=== PATIENT | female | born 1935 | race Caucasian/White ===

== ENCOUNTER 2019-06-07 10:21 | Emergency (ER) | payer MEDICARE ==
[2019-06-07] MEDS ORDERED: SODIUM CHLORIDE 0.9% 500ML 500 ML IV ONE (10:52)
[2019-06-07 11:17] LABS: BASOPHILS % (AUTO) 0.4 % (0.0-5.0); EOSINOPHILS % (AUTO) 1.3 % (0.0-8.0); HEMATOCRIT 41.4 % (36-48); LYMPHOCYTES % (AUTO) 14.7 % (21.0-51.0); MEAN CORPUSCULAR HEMOGLOBIN 31.6 pg (27.0-33.0); MEAN CORPUSCULAR HGB CONC 34.2 g/dL (32.0-36.0); MEAN CORPUSCULAR VOLUME 92.2 fL (79-99); MONOCYTES % (AUTO) 9.4 % (3.0-13.0); NEUTROPHILS % (AUTO) 74.2 % (40.0-77.0); PLATELET COUNT (AUTO) 229 K/uL (130-400); RED BLOOD CELL COUNT(AUTO) 4.49 MIL/uL (4.00-5.50); RED CELL DISTRIBUTION WIDTH 14.6 % (11.0-15.5); WHITE BLOOD COUNT (AUTO) 14.9 K/uL (4.8-10.8)
[2019-06-07 11:39] LABS: CREATININE 0.9 mg/dL (0.5-1.5); POTASSIUM 3.5 mmol/L (3.5-5.1)
[2019-06-07 11:43] LABS: ALBUMIN 3.2 g/dL (3.5-5.0); BILIRUBIN,TOTAL 0.8 mg/dL (0.2-1.0); TOTAL PROTEIN, SERUM 7.3 g/dL (6.0-8.3)
[2019-06-07 11:44] LABS: APPEARANCE,URINE Cloudy (CLEAR); BILIRUBIN,URINE Negative (NEGATIVE); COLOR,URINE Dark Yellow (YELLOW); GLUCOSE, URINE (UA) Negative (NEGATIVE); KETONES,URINE Trace mg/dL (NEGATIVE); LEUKOCYTE ESTERASE ,URINE Negative (NEGATIVE); NITRATE,URINE Negative (NEGATIVE); OCCULT BLOOD,URINE Negative (NEGATIVE); PROTEIN,URINE Negative (NEGATIVE)
[2019-06-07 11:54] LABS: B-TYPE NATRIURETIC PEPTIDE 119 pg/mL (0-100)
[2019-06-07 12:04] LABS: BACTERIA,URINE Rare /HPF (None Seen); MUCUS,URINE Many LPF (None Seen); RBC,URINE 0-1 /HPF (0-1); SQUAMOUS EPITHELIAL CELL,UR Moderate /HPF (0-2); WBC,URINE 0-1 /HPF (0-1)
[2019-06-07 12:07] LABS: PARTIAL THROMBOPLASTIN TIME 26.4 SEC (26.3-35.5); PROTHROMBIN TIME 10.5 SEC (9.6-11.6)
[2019-06-07] MEDS ORDERED: IOHEXOL 350 MG/ML 100ML INFUS..BTL IV ONE (13:57)
[2019-06-07 15:52] LABS: ABG BASE EXCESS 0.7 mmol/L (-2.0-3.0); ABG HCO3 24.4 mmol/L (21.0-28.0); ABG OXYGEN SATURATION 95.5 % (95.0-99.0); ABG PCO2 36 mmHg (32-45)
[2019-06-07] MEDS ORDERED: IPRATROPIUM/ALBUTEROL SULFATE 3 ML SOLUTION IH ONE (16:50)
== END 2019-06-07 17:16 | disposition home or self-care (01) ==
LOC: EDH 10:21
DX: I10 Essential (primary) hypertension (principal); F41.9 Anxiety disorder, unspecified; J32.9 Chronic sinusitis, unspecified; R06.02 Shortness of breath; E78.00 Pure hypercholesterolemia, unspecified; Z95.1 Presence of aortocoronary bypass graft; Z87.891 Personal history of nicotine dependence; Z88.8 Allergy status to other drugs, medicaments and biological substances
CPT/HCPCS: 36415; 36600; 71045; 71275; 80053; 81001; 82550; 82803; 83880; 84484; 85025; 85610; 85730; 87804 ×2; 93005; 94640; 99285; J7040; Q9967

== ENCOUNTER 2019-08-08 22:42 | Emergency (ER) | payer MEDICARE | END 2019-08-09 00:53 | disposition home or self-care (01) | LOC: EDH 22:42 | DX: K59.00 Constipation, unspecified (principal); E78.00 Pure hypercholesterolemia, unspecified; Z98.890 Other specified postprocedural states; Z88.8 Allergy status to other drugs, medicaments and biological substances ==

== ENCOUNTER 2019-09-20 18:00 | Emergency (ER) | payer MEDICARE | END 2019-09-20 21:26 | disposition home or self-care (01) | LOC: EDH 18:00 | DX: R07.89 Other chest pain (principal); K56.609 Unspecified intestinal obstruction, unspecified as to partial versus complete obstruction; E78.00 Pure hypercholesterolemia, unspecified; Z88.8 Allergy status to other drugs, medicaments and biological substances; V00.831A Fall from motorized mobility scooter, initial encounter; Y93.89 Activity, other specified; Y92.89 Other specified places as the place of occurrence of the external cause; Y99.8 Other external cause status | CPT/HCPCS: 71046; 82948 ==

== ENCOUNTER 2020-10-06 15:55 | Inpatient (IN) | payer MEDICARE ==
[~2020-10-06] VITALS: Ht 157.5 cm; Wt 63.5 kg
[2020-10-06 16:23] LABS: BASOPHILS % (AUTO) 0.3 % (0.0-5.0); EOSINOPHILS % (AUTO) 2.2 % (0.0-8.0); HEMATOCRIT 41.6 % (36-48); LYMPHOCYTES % (AUTO) 11.6 % (21.0-51.0); MEAN CORPUSCULAR HEMOGLOBIN 30.7 pg (27.0-33.0); MEAN CORPUSCULAR HGB CONC 33.2 g/dL (32.0-36.0); MEAN CORPUSCULAR VOLUME 92.4 fL (79-99); MONOCYTES % (AUTO) 8.2 % (3.0-13.0); NEUTROPHILS % (AUTO) 77.4 % (40.0-77.0); PLATELET COUNT (AUTO) 240 K/uL (130-400); WHITE BLOOD COUNT (AUTO) 8.7 K/uL (4.8-10.8)
[2020-10-06 16:34] LABS: CREATININE 0.9 mg/dL (0.5-1.5)
[2020-10-06 16:36] LABS: INR 1.05 (0.85-1.15); PROTHROMBIN TIME 11.4 SEC (9.6-11.6)
[2020-10-06 16:37] LABS: PARTIAL THROMBOPLASTIN TIME 25.8 SEC (26.3-35.5)
[2020-10-06 16:38] LABS: ALBUMIN 3.5 g/dL (3.5-5.0); BILIRUBIN,TOTAL 0.4 mg/dL (0.2-1.0); TOTAL PROTEIN, SERUM 7.2 g/dL (6.0-8.3)
[2020-10-06 17:06] LABS: CRP QUANTITATIVE 13.7 mg/L (0.00-9.0)
[2020-10-06 17:24] LABS: APPEARANCE,URINE Clear (CLEAR); BILIRUBIN,URINE Negative (NEGATIVE); COLOR,URINE Yellow (YELLOW); GLUCOSE, URINE (UA) Negative (NEGATIVE); KETONES,URINE Trace mg/dL (NEGATIVE); LEUKOCYTE ESTERASE ,URINE Trace (NEGATIVE); NITRATE,URINE Negative (NEGATIVE); OCCULT BLOOD,URINE Negative (NEGATIVE); PH,URINE 7.5 (5.0-8.0); PROTEIN,URINE Negative (NEGATIVE)
[2020-10-06 17:43] LABS: BACTERIA,URINE Rare /HPF (None Seen); RBC,URINE 0-1 /HPF (0-1); SQUAMOUS EPITHELIAL CELL,UR Few /HPF (0-2); WBC,URINE 0-1 /HPF (0-1)
[2020-10-06] MEDS ORDERED: MORPHINE 2 MG SYG IV PRN (20:15)
[2020-10-06] MEDS ORDERED: MAG/ALUM/SIMETH 30 ML UDCUP PO PRN (20:15)
[2020-10-06] MEDS: IBUPROFEN 800 MG TAB PO SCH (20:15)
[2020-10-06] MEDS ORDERED: ACETAMINOPHEN 325 MG TAB PO PRN ×2 (20:15)
[2020-10-06] MEDS ORDERED: DIPHENHYDRAMINE HCL 25 MG CAPSULE PO PRN (20:15)
[2020-10-06] MEDS ORDERED: NITROGLYCERIN 0.4 MG SL TAB SL PRN (20:15)
[2020-10-06] MEDS ORDERED: HYDROMORPHONE 1 MG INJ IV PRN (20:15)
[2020-10-06] MEDS ORDERED: ONDANSETRON 4MG INJ IV PRN (20:15)
[2020-10-06] MEDS ORDERED: LACTULOSE 20 GM/30 ML UDCUP PO PRN (20:15)
[2020-10-06] MEDS ORDERED: DiphenhydrAMINE HCL 50 MG/ML VIAL IV PRN (20:15)
[2020-10-06] MEDS ORDERED: HYDROMORPHONE 0.5 MG SYG (0.5MG/0.5ML) IV PRN (20:45)
[2020-10-06] MEDS: FAMOTIDINE 20MG VIAL IV SCH (21:00)
[2020-10-06] MEDS ORDERED: FAMOTIDINE 20MG VIAL IV ONE (23:10)
[2020-10-07] VITALS (25 sets, daily range): BP systolic 108–188; BP diastolic 47–90
[2020-10-07] MEDS: IBUPROFEN 800 MG TAB PO SCH ×4 (02:15→21:06)
[2020-10-07] MEDS ORDERED: IBUPROFEN 800 MG TAB ONE (08:16)
[2020-10-07] MEDS ORDERED: FAMOTIDINE 20MG VIAL IV ONE (08:16)
[2020-10-07] MEDS: FAMOTIDINE 20MG VIAL IV SCH ×2 (09:00→21:06)
[2020-10-07] MEDS ORDERED: LIDOCAINE PF 100MG/5ML (2%) SYRINGE 5ML ONE (10:32)
[2020-10-07] MEDS ORDERED: SUCCINYLCHOLINE CHLORIDE 20 MG/ML 10 ML VIAL ONE (10:32)
[2020-10-07] MEDS ORDERED: FENTANYL CITRATE PF 50 MCG/1 ML 2ML VIAL ONE (10:33)
[2020-10-07] MEDS ORDERED: ROCURONIUM 10MG/1ML SYR 10 MG/ML ML ONE (10:33)
[2020-10-07] MEDS ORDERED: PROPOFOL 10 MG/ML 20ML VIAL IV ONE (10:33)
[2020-10-07] MEDS ORDERED: CEFAZOLIN SODIUM 1 GM VIAL ONE ×2 (10:42→11:07)
[2020-10-07] MEDS ORDERED: METO-408 PO (10:58)
[2020-10-07] MEDS ORDERED: ISOS30TA92 PO (10:58)
[2020-10-07] MEDS ORDERED: DULO30CA52 PO (10:58)
[2020-10-07] MEDS ORDERED: THROMBIN-JMI 20000 UNIT KIT TP ONE (11:07)
[2020-10-07] MEDS ORDERED: MORPHINE PF 100MG/10ML AMP IV ONE (11:07)
[2020-10-07] MEDS: BUPIVACAINE/EPI/PF 0.25% 30ML VIAL IJ SCH ×2 (11:30→12:00)
[2020-10-07] MEDS: 0.9%NACL 1000ML 1,000 ML IV ONE ×2 (14:30→15:40)
[2020-10-07] MEDS ORDERED: GLYCOPYRROLATE 1 MG/5 ML SYRINGE ONE (15:24)
[2020-10-07] MEDS ORDERED: NEOSTIGMINE 5MG/5ML SYR IV ONE (15:25)
[2020-10-07] MEDS: CEFAZOLIN SODIUM 1 GM VIAL IVP SCH (16:00)
[2020-10-07] MEDS: DEXAMETHASONE SOD PHOSPHATE 4 MG/ML 1ML VIAL IVP SCH ×2 (16:00→21:14)
[2020-10-07] MEDS ORDERED: PROMETHAZINE HCL 25 MG/ML 1ML AMPULE IM PRN (16:00)
[2020-10-07] MEDS ORDERED: MORPHINE 2 MG SYG IVP PRN (16:00)
[2020-10-07] MEDS ORDERED: 0.9%NACL 10ML VIAL IVP PRN (16:00)
[2020-10-07] MEDS ORDERED: LACTATED RINGERS 1000ML 1,000 ML IV SCH (16:00)
[2020-10-07] MEDS ORDERED: HYDROCODONE/ACETAMINOPHEN 5/325 MG TAB PO PRN (16:00)
[2020-10-07] MEDS ORDERED: METOCLOPRAMIDE 10 MG/2 ML VIAL ONE (16:21)
[2020-10-07] MEDS ORDERED: HYDRALAZINE 20MG/ML VIAL ONE (16:37)
[2020-10-08] MEDS: CEFAZOLIN SODIUM 1 GM VIAL IVP SCH (00:35)
[2020-10-08 03:45] VITALS: BP 135/47
[2020-10-08] MEDS: DEXAMETHASONE SOD PHOSPHATE 4 MG/ML 1ML VIAL IVP SCH ×2 (04:01→09:54)
[2020-10-08] MEDS: IBUPROFEN 800 MG TAB PO SCH (04:03)
[2020-10-08 06:11] LABS: BASOPHILS % (AUTO) 0.1 % (0.0-5.0); EOSINOPHILS % (AUTO) 0.4 % (0.0-8.0); HEMATOCRIT 38.8 % (36-48); LYMPHOCYTES % (AUTO) 7.9 % (21.0-51.0); MEAN CORPUSCULAR HEMOGLOBIN 30.1 pg (27.0-33.0); MEAN CORPUSCULAR HGB CONC 32.7 g/dL (32.0-36.0); MEAN CORPUSCULAR VOLUME 91.9 fL (79-99); MONOCYTES % (AUTO) 3.1 % (3.0-13.0); NEUTROPHILS % (AUTO) 88.1 % (40.0-77.0); PLATELET COUNT (AUTO) 221 K/uL (130-400); RED BLOOD CELL COUNT(AUTO) 4.22 MIL/uL (4.00-5.50); WHITE BLOOD COUNT (AUTO) 14.1 K/uL (4.8-10.8)
[2020-10-08 06:35] LABS: ALBUMIN 2.9 g/dL (3.5-5.0); BILIRUBIN,TOTAL 0.2 mg/dL (0.2-1.0); CREATININE 0.9 mg/dL (0.5-1.5); POTASSIUM 4.2 mmol/L (3.5-5.1); TOTAL PROTEIN, SERUM 6.5 g/dL (6.0-8.3)
[2020-10-08 07:28] VITALS: BP 149/54
[2020-10-08] MEDS ORDERED: DULOXETINE HCL 30 MG CAP PO SCH (09:00)
[2020-10-08] MEDS: FAMOTIDINE 20MG VIAL IV SCH (09:00)
[2020-10-08] MEDS ORDERED: ISOSORBIDE MONO 30MG SR TAB PO SCH (09:00)
[2020-10-08] MEDS ORDERED: METOPROLOL SUCCINATE 50 MG TAB.SR.24H PO SCH (09:00)
[2020-10-08 10:56] VITALS: BP 147/53
[2020-10-08] MEDS: BUPIVACAINE/EPI/PF 0.25% 30ML VIAL IJ SCH (11:30)
== END 2020-10-08 16:10 | disposition home or self-care (01) | DRG 460 ==
LOC: EDH 15:55 → EDHIP 20:25 → 3CH 10-07 15:30
PROVIDERS: ADMIT Family Medicine; ATTEND Family Medicine
PROC: 0SG00K1 Fusion of Lumbar Vertebral Joint with Nonautologous Tissue Substitute, Posterior Approach, Posterior Column, Open Approach (ICD-10-PCS; principal; 2020-10-07 11:23)
PROC: 01NB0ZZ Release Lumbar Nerve, Open Approach (ICD-10-PCS; 2020-10-07 11:23)
PROC: 01NR0ZZ Release Sacral Nerve, Open Approach (ICD-10-PCS; 2020-10-07 11:23)
PROC: 0HB7XZZ Excision of Abdomen Skin, External Approach (ICD-10-PCS; 2020-10-07 11:23)
PROC: 4A11X4G Monitoring of Peripheral Nervous Electrical Activity, Intraoperative, External Approach (ICD-10-PCS; 2020-10-07 11:23)
DX: M48.061 Spinal stenosis, lumbar region without neurogenic claudication (principal); I10 Essential (primary) hypertension; E78.5 Hyperlipidemia, unspecified; E78.00 Pure hypercholesterolemia, unspecified; M79.7 Fibromyalgia; M47.9 Spondylosis, unspecified; M43.16 Spondylolisthesis, lumbar region; Z20.822 Contact with and (suspected) exposure to COVID-19; L98.9 Disorder of the skin and subcutaneous tissue, unspecified; I25.10 Atherosclerotic heart disease of native coronary artery without angina pectoris; R15.9 Full incontinence of feces; Z95.1 Presence of aortocoronary bypass graft; Z95.5 Presence of coronary angioplasty implant and graft
CPT/HCPCS: 36415; 71045; 72110; 72114; 72141; 72146; 72148; 80053; 81001; 82550; 83690; 83880; 84484; 85025; 85610; 85730; 86140; 87426; 88305; 93005; 97039; A4344; G0378; J0330; J0360; J0690; J1100; J1200; J2001; J2274; J2704; J2710; J2765; J3010; J3490; J7030; U0003

== ENCOUNTER 2021-06-26 15:56 | Emergency (ER) | payer MEDICARE ==
[~2021-06-26] VITALS: Ht 154.9 cm; Wt 63.5 kg
[~2021-06-26 15:56] MED LIST: DULO30CA52 PO; ISOS30TA92 PO; METO-408 PO
[2021-06-26] MEDS ORDERED: MORPHINE 2 MG SYG IVP ONE (16:30)
[2021-06-26] MEDS ORDERED: ONDANSETRON 4MG INJ IVP ONE (16:30)
[2021-06-26 16:50] LABS: APPEARANCE,URINE Clear (CLEAR); BILIRUBIN,URINE Negative (NEGATIVE); COLOR,URINE Yellow (YELLOW); GLUCOSE, URINE (UA) Negative (NEGATIVE); KETONES,URINE Negative (NEGATIVE); LEUKOCYTE ESTERASE ,URINE Trace (NEGATIVE); NITRATE,URINE Negative (NEGATIVE); OCCULT BLOOD,URINE Negative (NEGATIVE); PH,URINE 6.5 (5.0-8.0); PROTEIN,URINE Negative (NEGATIVE)
[2021-06-26 17:16] LABS: BASOPHILS % (AUTO) 0.4 % (0.0-5.0); EOSINOPHILS % (AUTO) 3.5 % (0.0-8.0); HEMATOCRIT 37.5 % (36-48); LYMPHOCYTES % (AUTO) 26.1 % (21.0-51.0); MEAN CORPUSCULAR HGB CONC 33.1 g/dL (32.0-36.0); MEAN CORPUSCULAR VOLUME 90.6 fL (79-99); MONOCYTES % (AUTO) 9.4 % (3.0-13.0); NEUTROPHILS % (AUTO) 60.1 % (40.0-77.0); PLATELET COUNT (AUTO) 274 K/uL (130-400); RED BLOOD CELL COUNT(AUTO) 4.14 MIL/uL (4.00-5.50); RED CELL DISTRIBUTION WIDTH 12.8 % (11.0-15.5); WHITE BLOOD COUNT (AUTO) 9.2 K/uL (4.8-10.8)
[2021-06-26 17:28] LABS: CREATININE 0.9 mg/dL (0.5-1.5); POTASSIUM 3.6 mmol/L (3.5-5.1)
[2021-06-26 17:30] LABS: BACTERIA,URINE Rare /HPF (None Seen); RBC,URINE 0-1 /HPF (0-1); SQUAMOUS EPITHELIAL CELL,UR Moderate /HPF (0-2); WBC,URINE 0-1 /HPF (0-1)
[2021-06-26 17:32] LABS: ALBUMIN 3.3 g/dL (3.5-5.0); BILIRUBIN,TOTAL 0.5 mg/dL (0.2-1.0); TOTAL PROTEIN, SERUM 7.4 g/dL (6.0-8.3)
[2021-06-26] MEDS ORDERED: LEVOFLOXACIN 500 MG TABLET PO SCH (18:00)
[2021-06-26] MEDS ORDERED: METRONIDAZOLE 500 MG TABLET PO SCH (18:00)
[2021-06-26] MEDS ORDERED: LEVO500T90 PO (18:15)
[2021-06-26] MEDS ORDERED: METR-172 PO (18:15)
[2021-06-26] MEDS ORDERED: DICY20TA2 PO (18:16)
[2021-06-26 18:50] VITALS: BP 152/59
== END 2021-06-26 18:51 | disposition home or self-care (01) ==
LOC: EDH 15:56
DX: K57.32 Diverticulitis of large intestine without perforation or abscess without bleeding (principal); E78.00 Pure hypercholesterolemia, unspecified; Z88.8 Allergy status to other drugs, medicaments and biological substances; Z79.899 Other long term (current) drug therapy
CPT/HCPCS: 36415; 71045; 74176; 80053; 81001; 83690; 84484; 85025; 93005; 96374; 96375; 99285; J2405

== ENCOUNTER 2021-10-01 15:50 | Inpatient (IN) | payer MEDICARE ==
[~2021-10-01] VITALS: Ht 157.5 cm; Wt 63.5 kg
[~2021-10-01 15:50] MED LIST changes: +DICY20TA2 PO; +LEVO500T90 PO; +METR-172 PO
[2021-10-01 16:52] LABS: BASOPHILS % (AUTO) 0.5 % (0.0-5.0); EOSINOPHILS % (AUTO) 2.1 % (0.0-8.0); HEMATOCRIT 39.1 % (36-48); LYMPHOCYTES % (AUTO) 22.4 % (21.0-51.0); MEAN CORPUSCULAR HEMOGLOBIN 29.6 pg (27.0-33.0); MEAN CORPUSCULAR HGB CONC 32.2 g/dL (32.0-36.0); MEAN CORPUSCULAR VOLUME 91.8 fL (79-99); MONOCYTES % (AUTO) 9.6 % (3.0-13.0); NEUTROPHILS % (AUTO) 64.8 % (40.0-77.0); PLATELET COUNT (AUTO) 275 K/uL (130-400); RED BLOOD CELL COUNT(AUTO) 4.26 MIL/uL (4.00-5.50); RED CELL DISTRIBUTION WIDTH 13.3 % (11.0-15.5); WHITE BLOOD COUNT (AUTO) 10.9 K/uL (4.8-10.8)
[2021-10-01] MEDS ORDERED: PANTOPRAZOLE 40 MG/VIAL IVP ONE (17:00)
[2021-10-01 17:01] LABS: CREATININE 0.8 mg/dL (0.5-1.5); POTASSIUM 3.5 mmol/L (3.5-5.1)
[2021-10-01 17:11] LABS: ALBUMIN 3.4 g/dL (3.5-5.0); BILIRUBIN,TOTAL 0.4 mg/dL (0.2-1.0); TOTAL PROTEIN, SERUM 7.2 g/dL (6.0-8.3)
[2021-10-01 17:19] LABS: B-TYPE NATRIURETIC PEPTIDE 687 pg/mL (0-100)
[2021-10-01 17:51] LABS: INR 1.04 (0.85-1.15); PROTHROMBIN TIME 11.3 SEC (9.6-11.6)
[2021-10-01] MEDS ORDERED: FUROSEMIDE 40MG VIAL IV ONE (18:00)
[2021-10-01 18:23] LABS: APPEARANCE,URINE Clear (CLEAR); BILIRUBIN,URINE Negative (NEGATIVE); COLOR,URINE Yellow (YELLOW); GLUCOSE, URINE (UA) Negative (NEGATIVE); KETONES,URINE Negative (NEGATIVE); LEUKOCYTE ESTERASE ,URINE Negative (NEGATIVE); NITRATE,URINE Negative (NEGATIVE); OCCULT BLOOD,URINE Negative (NEGATIVE); PH,URINE 8.5 (5.0-8.0); PROTEIN,URINE Negative (NEGATIVE)
[2021-10-01] MEDS ORDERED: PANTOPRAZOLE 40 MG/VIAL ONE (18:29)
[2021-10-01] MEDS ORDERED: ASPIRIN 81MG CHEW TAB ONE (18:29)
[2021-10-01] MEDS ORDERED: ENOXAPARIN SODIUM 30 MG/0.3 ML SQ SCH (18:30)
[2021-10-01] MEDS ORDERED: ENOXAPARIN SODIUM 0.5 MG/KG EACH SQ SCH (18:30)
[2021-10-01] MEDS ORDERED: NITROGLYCERIN 1GM OINT 1 INCH/1GM TD ONE (20:00)
[2021-10-01] MEDS ORDERED: ONDANSETRON 4MG INJ IV PRN (21:30)
[2021-10-01] MEDS: NITROGLYCERIN 1GM OINT 1 INCH/1GM TD SCH (21:30)
[2021-10-01] MEDS ORDERED: ACETAMINOPHEN 325 MG TAB PO PRN ×2 (21:30)
[2021-10-01] MEDS ORDERED: FURO20TA4 PO (22:10)
[2021-10-01] MEDS ORDERED: ISOS60TA77 PO (22:10)
[2021-10-01] MEDS ORDERED: AEC81 PO (22:11)
[2021-10-01] MEDS ORDERED: ALIR75PE5 SQ (22:12)
[2021-10-02 02:50] VITALS: BP 153/61
[2021-10-02] MEDS: NITROGLYCERIN 1GM OINT 1 INCH/1GM TD SCH ×3 (05:51→17:43)
[2021-10-02 07:01] LABS: BASOPHILS % (AUTO) 0.6 % (0.0-5.0); HEMATOCRIT 41.3 % (36-48); LYMPHOCYTES % (AUTO) 25.1 % (21.0-51.0); MEAN CORPUSCULAR HEMOGLOBIN 28.8 pg (27.0-33.0); MEAN CORPUSCULAR HGB CONC 32.2 g/dL (32.0-36.0); MEAN CORPUSCULAR VOLUME 89.4 fL (79-99); MONOCYTES % (AUTO) 10.5 % (3.0-13.0); NEUTROPHILS % (AUTO) 60.1 % (40.0-77.0); PLATELET COUNT (AUTO) 257 K/uL (130-400); RED BLOOD CELL COUNT(AUTO) 4.62 MIL/uL (4.00-5.50); RED CELL DISTRIBUTION WIDTH 13.2 % (11.0-15.5)
[2021-10-02 07:50] LABS: CREATININE 0.7 mg/dL (0.5-1.5); MAGNESIUM 1.8 mg/dL (1.80-2.40); PHOSPHORUS 4.6 mg/dL (2.5-4.9); POTASSIUM 3.7 mmol/L (3.5-5.1)
[2021-10-02 08:00] VITALS: BP 144/61
[2021-10-02] MEDS ORDERED: METOPROLOL TARTRATE 25 MG TAB PO SCH (09:00)
[2021-10-02] MEDS ORDERED: ASPIRIN 81MG CHEW TAB PO SCH (09:00)
[2021-10-02] MEDS ORDERED: ASPIRIN 81 MG EC TAB PO SCH ×2 (09:00→09:30)
[2021-10-02] MEDS: FAMOTIDINE 20MG TAB PO SCH (09:00)
[2021-10-02] MEDS: ENOXAPARIN SODIUM 40 MG/0.4 ML SYRINGE SQ SCH (09:01)
[2021-10-02] MEDS: FUROSEMIDE 40MG VIAL IVP SCH ×2 (09:01→20:30)
[2021-10-02 11:58] VITALS: BP 120/71
[2021-10-02 12:05] LABS: CHOLESTEROL 235 mg/dL (<200); HDL CHOLESTEROL 34 mg/dL (35-85); LDL DIRECT 166 mg/dL (0-99); TRIGLYCERIDES 181 mg/dL (30-200)
[2021-10-02] MEDS: ISOSORBIDE MONO 30MG SR TAB PO SCH (12:27)
[2021-10-02 13:40] LABS: CREATININE 1.1 mg/dL (0.5-1.5); MAGNESIUM 1.8 mg/dL (1.80-2.40); POTASSIUM 3.6 mmol/L (3.5-5.1)
[2021-10-02] MEDS ORDERED: MAGNESIUM 2GM PREMIX 50ML 50 ML IV PRN (14:30)
[2021-10-02] MEDS ORDERED: KCL 20 MEQ ERTAB PO ONE ×2 (14:30→23:00)
[2021-10-02 16:00] VITALS: BP 136/62
[2021-10-02 20:00] VITALS: BP 138/62
[2021-10-02 23:19] LABS: CREATININE 1.1 mg/dL (0.5-1.5); POTASSIUM 3.7 mmol/L (3.5-5.1)
[2021-10-03] VITALS (8 sets, daily range): BP systolic 126–149; BP diastolic 54–74
[2021-10-03] MEDS: NITROGLYCERIN 1GM OINT 1 INCH/1GM TD SCH ×4 (01:32→20:47)
[2021-10-03 06:37] LABS: BASOPHILS % (AUTO) 0.7 % (0.0-5.0); EOSINOPHILS % (AUTO) 2.9 % (0.0-8.0); HEMATOCRIT 43.6 % (36-48); LYMPHOCYTES % (AUTO) 18.9 % (21.0-51.0); MEAN CORPUSCULAR HEMOGLOBIN 30.1 pg (27.0-33.0); MEAN CORPUSCULAR HGB CONC 33.3 g/dL (32.0-36.0); MEAN CORPUSCULAR VOLUME 90.6 fL (79-99); MONOCYTES % (AUTO) 8.7 % (3.0-13.0); NEUTROPHILS % (AUTO) 68.3 % (40.0-77.0); PLATELET COUNT (AUTO) 283 K/uL (130-400); RED BLOOD CELL COUNT(AUTO) 4.81 MIL/uL (4.00-5.50); RED CELL DISTRIBUTION WIDTH 13.2 % (11.0-15.5); WHITE BLOOD COUNT (AUTO) 11.2 K/uL (4.8-10.8)
[2021-10-03 07:01] LABS: POTASSIUM 4.4 mmol/L (3.5-5.1)
[2021-10-03 07:36] LABS: B-TYPE NATRIURETIC PEPTIDE 71 pg/mL (0-100)
[2021-10-03] MEDS ORDERED: REGADENOSON 0.4 MG/5 ML PF SYG IVP SCH (08:00)
[2021-10-03] MEDS ORDERED: FUROSEMIDE 20MG VIAL IVP SCH (09:00)
[2021-10-03] MEDS: ASPIRIN 81 MG EC TAB PO SCH (09:45)
[2021-10-03] MEDS: ISOSORBIDE MONO 30MG SR TAB PO SCH (09:46)
[2021-10-03] MEDS: DULOXETINE HCL 30 MG CAP PO SCH (09:46)
[2021-10-03] MEDS: FAMOTIDINE 20MG TAB PO SCH (09:46)
[2021-10-03] MEDS: ENOXAPARIN SODIUM 40 MG/0.4 ML SYRINGE SQ SCH (09:47)
[2021-10-03 16:25] LABS: MAGNESIUM 2.2 mg/dL (1.80-2.40); POTASSIUM 4.1 mmol/L (3.5-5.1)
[2021-10-04 03:32] VITALS: BP 131/73
[2021-10-04 06:31] LABS: BASOPHILS % (AUTO) 0.6 % (0.0-5.0); EOSINOPHILS % (AUTO) 3.8 % (0.0-8.0); HEMATOCRIT 44.8 % (36-48); LYMPHOCYTES % (AUTO) 22.9 % (21.0-51.0); MEAN CORPUSCULAR HEMOGLOBIN 28.9 pg (27.0-33.0); MEAN CORPUSCULAR HGB CONC 31.9 g/dL (32.0-36.0); MEAN CORPUSCULAR VOLUME 90.7 fL (79-99); MONOCYTES % (AUTO) 8.9 % (3.0-13.0); NEUTROPHILS % (AUTO) 63.3 % (40.0-77.0); PLATELET COUNT (AUTO) 303 K/uL (130-400); RED BLOOD CELL COUNT(AUTO) 4.94 MIL/uL (4.00-5.50); RED CELL DISTRIBUTION WIDTH 13.2 % (11.0-15.5); WHITE BLOOD COUNT (AUTO) 9.9 K/uL (4.8-10.8)
[2021-10-04 06:34] LABS: CREATININE 0.8 mg/dL (0.5-1.5); MAGNESIUM 2.2 mg/dL (1.80-2.40); POTASSIUM 4.5 mmol/L (3.5-5.1)
[2021-10-04 07:00] VITALS: BP 153/74
[2021-10-04] MEDS: ISOSORBIDE MONO 60MG SR TAB PO SCH (09:29)
[2021-10-04] MEDS: FAMOTIDINE 20MG TAB PO SCH (09:29)
[2021-10-04] MEDS: DULOXETINE HCL 30 MG CAP PO SCH (09:29)
[2021-10-04] MEDS: ENOXAPARIN SODIUM 40 MG/0.4 ML SYRINGE SQ SCH (09:29)
[2021-10-04] MEDS: ASPIRIN 81 MG EC TAB PO SCH (09:29)
[2021-10-04] MEDS: LOSARTAN 25 MG TABLET PO SCH (09:29)
[2021-10-04] MEDS ORDERED: MAG/ALUM/SIMETH 30 ML UDCUP PO SCH (11:30)
[2021-10-04 11:45] VITALS: BP 132/70
[2021-10-04 15:00] VITALS: BP 123/57
[2021-10-04 20:00] VITALS: BP 148/58
[2021-10-05 00:26] VITALS: BP 130/57
[2021-10-05 04:00] VITALS: BP 126/65
[2021-10-05 06:31] LABS: BASOPHILS % (AUTO) 0.9 % (0.0-5.0); EOSINOPHILS % (AUTO) 3.7 % (0.0-8.0); HEMATOCRIT 44.2 % (36-48); LYMPHOCYTES % (AUTO) 22.7 % (21.0-51.0); MEAN CORPUSCULAR HEMOGLOBIN 29.6 pg (27.0-33.0); MEAN CORPUSCULAR HGB CONC 32.1 g/dL (32.0-36.0); MEAN CORPUSCULAR VOLUME 92.3 fL (79-99); MONOCYTES % (AUTO) 9.5 % (3.0-13.0); NEUTROPHILS % (AUTO) 62.5 % (40.0-77.0); PLATELET COUNT (AUTO) 327 K/uL (130-400); RED BLOOD CELL COUNT(AUTO) 4.79 MIL/uL (4.00-5.50); RED CELL DISTRIBUTION WIDTH 13.2 % (11.0-15.5); WHITE BLOOD COUNT (AUTO) 8.6 K/uL (4.8-10.8)
[2021-10-05 06:44] LABS: CREATININE 0.9 mg/dL (0.5-1.5); MAGNESIUM 1.9 mg/dL (1.80-2.40); POTASSIUM 4.1 mmol/L (3.5-5.1)
[2021-10-05 08:10] VITALS: BP 148/73
[2021-10-05] MEDS: RANOLAZINE 500 MG TAB.SR.12H PO SCH ×2 (10:07→20:28)
[2021-10-05] MEDS: ASPIRIN 81 MG EC TAB PO SCH (10:07)
[2021-10-05] MEDS: DULOXETINE HCL 30 MG CAP PO SCH (10:07)
[2021-10-05] MEDS: FAMOTIDINE 20MG TAB PO SCH (10:07)
[2021-10-05] MEDS: ISOSORBIDE MONO 60MG SR TAB PO SCH (10:07)
[2021-10-05] MEDS: LOSARTAN 25 MG TABLET PO SCH (10:07)
[2021-10-05] MEDS: ENOXAPARIN SODIUM 40 MG/0.4 ML SYRINGE SQ SCH (10:08)
[2021-10-05] MEDS ORDERED: IOHEXOL-350 75 ML VIAL IV ONE (10:38)
[2021-10-05 11:30] VITALS: BP 120/61
[2021-10-05 12:11] LABS: ABG BASE EXCESS 0.2 mmol/L (-2.0-3.0); ABG HCO3 19.3 mmol/L (21.0-28.0); ABG OXYGEN SATURATION 98.4 % (95.0-99.0); ABG PCO2 20 mmHg (32-45)
[2021-10-05 16:50] VITALS: BP 121/67
[2021-10-05 20:00] VITALS: BP 144/74
[2021-10-06] VITALS: BP 123/57
[2021-10-06 04:00] VITALS: BP 119/71
[2021-10-06 04:38] LABS: HEMATOCRIT 40.2 % (36-48); MEAN CORPUSCULAR HEMOGLOBIN 29.1 pg (27.0-33.0); MEAN CORPUSCULAR HGB CONC 32.3 g/dL (32.0-36.0); MEAN CORPUSCULAR VOLUME 90.1 fL (79-99); RED BLOOD CELL COUNT(AUTO) 4.46 MIL/uL (4.00-5.50); RED CELL DISTRIBUTION WIDTH 13.1 % (11.0-15.5); WHITE BLOOD COUNT (AUTO) 9.2 K/uL (4.8-10.8)
[2021-10-06 04:50] LABS: CREATININE 0.9 mg/dL (0.5-1.5); POTASSIUM 4.1 mmol/L (3.5-5.1)
[2021-10-06] MEDS ORDERED: 0.9% NACL 500ML IV.SOLN 500 ML IV SCH (07:00)
[2021-10-06 08:00] VITALS: BP 126/62
[2021-10-06 08:07] LABS: INR 1.07 (0.85-1.15); PROTHROMBIN TIME 11.6 SEC (9.6-11.6)
[2021-10-06] MEDS: RANOLAZINE 500 MG TAB.SR.12H PO SCH ×2 (09:18→20:28)
[2021-10-06] MEDS: ISOSORBIDE MONO 60MG SR TAB PO SCH (09:19)
[2021-10-06] MEDS: LOSARTAN 25 MG TABLET PO SCH (09:19)
[2021-10-06] MEDS: ASPIRIN 81 MG EC TAB PO SCH (09:19)
[2021-10-06] MEDS: DULOXETINE HCL 30 MG CAP PO SCH (09:19)
[2021-10-06] MEDS: FAMOTIDINE 20MG TAB PO SCH (09:20)
[2021-10-06] MEDS: ENOXAPARIN SODIUM 40 MG/0.4 ML SYRINGE SQ SCH (09:20)
[2021-10-06 12:58] VITALS: BP 109/56
[2021-10-06 17:12] VITALS: BP 119/58
[2021-10-06 20:00] VITALS: BP 137/67
[2021-10-07] VITALS: BP 148/63
[2021-10-07] MEDS ORDERED: MAGNESIUM CITRATE 296 ML SOLUTION PO ONE (01:30)
[2021-10-07 04:00] VITALS: BP 139/59
[2021-10-07 04:48] LABS: HEMATOCRIT 40.4 % (36-48); MEAN CORPUSCULAR HGB CONC 32.9 g/dL (32.0-36.0); MEAN CORPUSCULAR VOLUME 91.2 fL (79-99); RED BLOOD CELL COUNT(AUTO) 4.43 MIL/uL (4.00-5.50)
[2021-10-07 05:05] LABS: CREATININE 0.8 mg/dL (0.5-1.5); POTASSIUM 4.7 mmol/L (3.5-5.1)
[2021-10-07] MEDS: ENOXAPARIN SODIUM 40 MG/0.4 ML SYRINGE SQ SCH (07:56)
[2021-10-07] MEDS ORDERED: IOHEXOL 350 MG/ML 100ML INFUS..BTL IV ONE ×2 (08:38→09:38)
[2021-10-07] MEDS ORDERED: IOHEXOL-350 50ML VIAL IV ONE (08:38)
[2021-10-07] MEDS ORDERED: MIDAZOLAM HCL 1 MG/ML 2ML VIAL ONE ×2 (08:38→10:23)
[2021-10-07] MEDS ORDERED: HEPARIN 10,000 UNIT/10ML (1,000 UNIT/ML) VIAL ONE (08:38)
[2021-10-07] MEDS ORDERED: FENTANYL CITRATE PF 50 MCG/1 ML 2ML VIAL ONE (08:38)
[2021-10-07] MEDS ORDERED: LIDOCAINE HCL 400MG/20ML VIAL ONE (08:40)
[2021-10-07] MEDS ORDERED: IOHEXOL-350 75 ML VIAL IV ONE (09:48)
[2021-10-07 10:01] VITALS: BP 146/72
[2021-10-07] MEDS ORDERED: BIVALIRUDIN 250 MG/VIAL IV ONE (10:34)
[2021-10-07] MEDS ORDERED: CLOPIDOGREL 300MG TAB ONE (10:37)
[2021-10-07] MEDS ORDERED: ASPIRIN 325MG EC TAB PO ONE (10:37)
[2021-10-07] MEDS ORDERED: LABETALOL 20MG VIAL IV ONE (10:53)
[2021-10-07] MEDS ORDERED: EPTIFIBATIDE 75MG/100ML BOTTLE 100 ML IV ONE (11:27)
[2021-10-07] MEDS ORDERED: EPTIFIBATIDE 2 MG/ML 10 ML VIAL IVP ONE ×2 (11:27→11:28)
[2021-10-07] MEDS ORDERED: ATROPINE 1MG SYG IVP ONE (12:44)
[2021-10-07] MEDS ORDERED: CLOPIDOGREL 300MG TAB PO SCH (13:00)
[2021-10-07] MEDS ORDERED: EPTIFIBATIDE 75MG/100ML BOTTLE 100 ML IV SCH (13:00)
[2021-10-07] MEDS ORDERED: 0.9%NACL 1000ML 1,000 ML IV SCH (13:00)
[2021-10-07 14:20] VITALS: BP 138/52
[2021-10-07] MEDS: ISOSORBIDE MONO 60MG SR TAB PO SCH (15:36)
[2021-10-07] MEDS: FAMOTIDINE 20MG TAB PO SCH (15:36)
[2021-10-07] MEDS: RANOLAZINE 500 MG TAB.SR.12H PO SCH ×2 (15:36→20:23)
[2021-10-07] MEDS: ASPIRIN 81 MG EC TAB PO SCH (15:36)
[2021-10-07] MEDS: DULOXETINE HCL 30 MG CAP PO SCH (15:36)
[2021-10-07] MEDS: LOSARTAN 25 MG TABLET PO SCH (15:36)
[2021-10-07] MEDS: FUROSEMIDE 20 MG TABLET PO SCH (15:38)
[2021-10-07 16:34] VITALS: BP 135/87
[2021-10-07 20:00] VITALS: BP 109/47
[2021-10-08] VITALS: BP 105/51
[2021-10-08 03:50] LABS: HEMATOCRIT 33.2 % (36-48); MEAN CORPUSCULAR HEMOGLOBIN 30.1 pg (27.0-33.0); MEAN CORPUSCULAR HGB CONC 33.1 g/dL (32.0-36.0); RED BLOOD CELL COUNT(AUTO) 3.65 MIL/uL (4.00-5.50); RED CELL DISTRIBUTION WIDTH 13.2 % (11.0-15.5); WHITE BLOOD COUNT (AUTO) 12.8 K/uL (4.8-10.8)
[2021-10-08 04:00] VITALS: BP 112/51
[2021-10-08 04:33] LABS: CREATININE 0.9 mg/dL (0.5-1.5)
[2021-10-08 08:12] VITALS: BP 131/60
[2021-10-08] MEDS ORDERED: CLOP75TA14 PO (08:24)
[2021-10-08] MEDS ORDERED: LOSA25TA2 PO (08:24)
[2021-10-08] MEDS: LOSARTAN 25 MG TABLET PO SCH (08:57)
[2021-10-08] MEDS: ASPIRIN 81 MG EC TAB PO SCH (08:57)
[2021-10-08] MEDS: FUROSEMIDE 20 MG TABLET PO SCH (08:57)
[2021-10-08] MEDS: RANOLAZINE 500 MG TAB.SR.12H PO SCH (08:58)
[2021-10-08] MEDS: ENOXAPARIN SODIUM 40 MG/0.4 ML SYRINGE SQ SCH (08:58)
[2021-10-08] MEDS: FAMOTIDINE 20MG TAB PO SCH (08:58)
[2021-10-08] MEDS: DULOXETINE HCL 30 MG CAP PO SCH (08:58)
[2021-10-08] MEDS ORDERED: CLOPIDOGREL 75MG TAB PO SCH (09:00)
[2021-10-08] MEDS: ISOSORBIDE MONO 60MG SR TAB PO SCH (09:04)
[2021-10-08 11:34] VITALS: BP 125/56
== END 2021-10-08 15:30 | disposition home or self-care (01) | DRG 246 ==
LOC: EDH 15:50 → EDHIP 21:07 → 4CH 10-02 02:33
PROVIDERS: ADMIT Internal Medicine; ATTEND Internal Medicine
PROC: 4A023N7 Measurement of Cardiac Sampling and Pressure, Left Heart, Percutaneous Approach (ICD-10-PCS; 2021-10-01)
PROC: B2111ZZ Fluoroscopy of Multiple Coronary Arteries using Low Osmolar Contrast (ICD-10-PCS; 2021-10-01)
PROC: B2181ZZ Fluoroscopy of Left Internal Mammary Bypass Graft using Low Osmolar Contrast (ICD-10-PCS; 2021-10-01)
PROC: 027034Z Dilation of Coronary Artery, One Artery with Drug-eluting Intraluminal Device, Percutaneous Approach (ICD-10-PCS; principal; 2021-10-07)
PROC: 02703ZZ Dilation of Coronary Artery, One Artery, Percutaneous Approach (ICD-10-PCS; 2021-10-07)
PROC: B41F1ZZ Fluoroscopy of Right Lower Extremity Arteries using Low Osmolar Contrast (ICD-10-PCS; 2021-10-07)
DX: I11.0 Hypertensive heart disease with heart failure (principal); I50.33 Acute on chronic diastolic (congestive) heart failure; I21.A1 Myocardial infarction type 2; I16.1 Hypertensive emergency; E87.1 Hypo-osmolality and hyponatremia; I25.110 Atherosclerotic heart disease of native coronary artery with unstable angina pectoris; I35.1 Nonrheumatic aortic (valve) insufficiency; D72.829 Elevated white blood cell count, unspecified; I25.10 Atherosclerotic heart disease of native coronary artery without angina pectoris; E78.5 Hyperlipidemia, unspecified; E78.00 Pure hypercholesterolemia, unspecified; M79.7 Fibromyalgia; Z20.822 Contact with and (suspected) exposure to COVID-19; Z79.82 Long term (current) use of aspirin; Z79.899 Other long term (current) drug therapy; Z98.49 Cataract extraction status, unspecified eye; Z95.5 Presence of coronary angioplasty implant and graft; Z95.1 Presence of aortocoronary bypass graft; Z90.710 Acquired absence of both cervix and uterus; Z90.49 Acquired absence of other specified parts of digestive tract; Z88.8 Allergy status to other drugs, medicaments and biological substances; Z80.8 Family history of malignant neoplasm of other organs or systems; Z83.3 Family history of diabetes mellitus; Z83.6 Family history of other diseases of the respiratory system
CPT/HCPCS: 36415; 36600; 71045; 71275; 78452; 80048; 80053; 80061; 81003; 82550; 82803; 83690; 83735; 83880; 84100; 84132; 84443; 84484; 85025; 85027; 85378; 85610; 85730; 87635; 92921; 92978; 93005; 93017; 93306; 93356; 93459; 93970; 94760; 96374; 97039; 99156; 99157; 99291; A9500; C1760; C1769; C1887; C1894; C9113; C9600; C9803; G0378; J0461; J0583; J1327; J1644; J1650; J1940; J2250; J2785; J3010; J3475; J3490; Q9967

== ENCOUNTER 2022-09-15 09:58 | Emergency (ER) | payer MEDICARE ==
[~2022-09-15] VITALS: Ht 154.9 cm; Wt 61.2 kg
[~2022-09-15 09:58] MED LIST changes: +AEC81 PO; +ALIR75PE5 SQ; +CLOP-31 PO; -DICY20TA2 PO; +FURO20TA4 PO; -ISOS30TA92 PO; +ISOS60TA77 PO; -LEVO500T90 PO; +LOSA25TA2 PO; -METO-408 PO; -METR-172 PO
[2022-09-15 10:19] LABS: BASOPHILS % (AUTO) 0.6 % (0.0-5.0); EOSINOPHILS % (AUTO) 3.1 % (0.0-8.0); HEMATOCRIT 39.8 % (36-48); LYMPHOCYTES % (AUTO) 27.3 % (21.0-51.0); MEAN CORPUSCULAR HEMOGLOBIN 30.2 pg (27.0-33.0); MEAN CORPUSCULAR HGB CONC 33.4 g/dL (32.0-36.0); MEAN CORPUSCULAR VOLUME 90.2 fL (79-99); MONOCYTES % (AUTO) 8.4 % (3.0-13.0); NEUTROPHILS % (AUTO) 60.3 % (40.0-77.0); PLATELET COUNT (AUTO) 253 K/uL (130-400); RED BLOOD CELL COUNT(AUTO) 4.41 MIL/uL (4.00-5.50); RED CELL DISTRIBUTION WIDTH 12.7 % (11.0-15.5)
[2022-09-15 10:28] LABS: CREATININE 0.8 mg/dL (0.5-1.5); POTASSIUM 3.9 mmol/L (3.5-5.1)
[2022-09-15 10:32] LABS: ALBUMIN 3.4 g/dL (3.5-5.0); TOTAL PROTEIN, SERUM 7.3 g/dL (6.0-8.3)
[2022-09-15 10:46] LABS: INR 0.97 (0.85-1.15); PROTHROMBIN TIME 10.6 SEC (9.6-11.6)
[2022-09-15 10:47] LABS: PARTIAL THROMBOPLASTIN TIME 26.3 SEC (26.3-35.5)
[2022-09-15 10:48] LABS: B-TYPE NATRIURETIC PEPTIDE 137 pg/mL (0-100)
[2022-09-15 11:21] LABS: APPEARANCE,URINE CLEAR (CLEAR); BILIRUBIN,URINE NEGATIVE (NEGATIVE); COLOR,URINE COLORLESS (YELLOW); GLUCOSE, URINE (UA) NEGATIVE (NEGATIVE); KETONES,URINE NEGATIVE (NEGATIVE); LEUKOCYTE ESTERASE ,URINE NEGATIVE Leu/uL (NEGATIVE); NITRATE,URINE NEGATIVE (NEGATIVE); OCCULT BLOOD,URINE NEGATIVE (NEGATIVE); PROTEIN,URINE NEGATIVE (NEGATIVE); UROBILINOGEN,URINE 0.2 mg/dL (0.2-1.0)
[2022-09-15] MEDS ORDERED: PANTOPRAZOLE 40 MG/VIAL IVP STA (11:41)
[2022-09-15 12:18] VITALS: BP 197/81
== END 2022-09-15 13:58 | disposition home or self-care (01) ==
LOC: EDH 09:58
DX: R07.89 Other chest pain (principal); R10.9 Unspecified abdominal pain; J45.909 Unspecified asthma, uncomplicated; K21.9 Gastro-esophageal reflux disease without esophagitis; I11.0 Hypertensive heart disease with heart failure; I50.9 Heart failure, unspecified; Z90.49 Acquired absence of other specified parts of digestive tract; Z79.899 Other long term (current) drug therapy; Z79.82 Long term (current) use of aspirin; Z88.8 Allergy status to other drugs, medicaments and biological substances; Z95.1 Presence of aortocoronary bypass graft
CPT/HCPCS: 99285; 96374; 71045; 82550; 84484 ×2; 80053; 83880; 85025; 85610; 85730; 81003; 36415; 93005; C9113